=== PATIENT | female | born 1985 | race Caucasian/White ===

== ENCOUNTER 2021-07-28 12:12 | Inpatient (IN) | payer MEDICAID, SELFPAY ==
[2021-07-28] VITALS (46 sets, daily range): BP systolic 105–174; BP diastolic 55–102; PULSE 76–163; RESP 14–18; TEMP 37.1–37.6; O2SAT 83–99; BMI 33.5
[2021-07-28] MEDS: Lactated Ringers 1,000 ML 50 ML IV (12:45)
[2021-07-28] MEDS: Labetalol (Prefilled) 20 MG/4 ML IV (12:47)
[2021-07-28] MEDS: Oxytocin 30 units/NS 500 ml 30 UNITS/500 ML IV.SOLN 334 UNITS IV (13:09)
[2021-07-28] MEDS: Labetalol (Prefilled) 20 MG/4 ML 40 MG IV (13:10)
[2021-07-28 13:15] LABS: Absolute Lymphocyte Count 0.93 X10^3/uL (0.83-4.51); Absolute Neutrophil Count 24.9 X10^3/uL (2.0-7.7); Basophil# 0.05 X10^3/uL; Basophil% 0.2 % (0-1); Eosinophil# 0.01 X10^3/uL; Hematocrit 36.2 % (37-47); Hemoglobin 12.6 g/dL (12.0-15.0); Lymphocyte # 0.93 X10^3/ul (0.83-4.51); Lymphocyte % 3.5 % (19-41); Mean Corp Hgb Conc 34.8 g/dL (32-36); Mean Corpuscular Hgb 33.1 pg (27.0-32.0); Mean Platelet Vol. 11.1 fl (6.2-12.0); Monocyte# 0.57 X10^3/uL; Monocyte% 2.1 % (0-10); NRBC Flagged by Analyzer 0 % (0-5); Neutrophil # 24.94 X10^3/uL (2.7-7.7); Neutrophil % 93.4 % (47-70); POSITIVE DIFFERENTIAL YES; Platelet Count 337 K/mm3 (150-450); RBC Distribution Width CV 12.6 % (11.6-14.6); RBC Distribution Width SD 43.8 fl (35.1-43.9); Red Blood Count 3.81 M/mm3 (4.2-5.4); White Blood Count 26.7 K/mm3 (4.4-11.0)
--- NOTE | 2021-07-28 13:30 | HP.PCM.OB_ITS ---
HPI - General General Date of Admission: 07/28/21 HPI Narrative MICHAEL OTT, is a 36-year-old 1 para 0 with unknown gestational age who presents status post vaginal delivery at her brother's house. She arrived by squad. The was doing well. She had not delivered the placenta. She did not know she was . She states she had unprotected sex with her partner who is now incarcerated. However she not think she was because she continued to spot. She states she did not feel very much movement. She does not know when her last period was. She denies headache, visual changes or epigastric pain. Patient notes she has never been in the past, denies history sexually- transmitted diseases. Has smoked marijuana, tobacco and drink alcohol lightly during the . She states she had maybe 4 shots of alcohol in the last several months. PFSH PFSH Home Medications NK 07/28/21 [History Last Taken Unknown] Allergy/AdvReac Type Severity Reaction Status Date / Time Penicillins [PCN] Allergy Other Verified 07/28/21 12:21 ROS Constitutional Constitutional: Denies fatigue, fever(s) or malaise Eyes Eyes: Denies change in vision ENT HEENT: Denies dizziness or headache(s) Cardiovascular Cardiovascular: Denies chest pain, dyspnea or lightheadedness Respiratory/Chest Respiratory/Chest: Denies cough or dyspnea Gastrointestinal Gastrointestinal: Denies change in bowel habits Genitourinary Genitourinary: Denies burning urination or genital lesions Integumentary Integumentary: Denies rash Neurologic Neurologic: Denies confusion, dizziness, headache(s), numbness or weakness Vital Signs Vital Signs Vital Signs: 07/28/21 12:47 07/28/21 12:49 07/28/21 12:53 Pulse Rate 85 84 81 Blood Pressure 137/102 H 150/87 H 166/95 H BP Systolic 137 150 166 BP Diastolic 102 87 95 07/28/21 12:58 07/28/21 13:01 07/28/21 13:03 Pulse Rate 88 80 92 Blood Pressure 167/93 H 168/94 H 173/101 H BP Systolic 167 168 173 BP Diastolic 93 94 101 07/28/21 13:09 07/28/21 13:29 Pulse Rate 81 83 Blood Pressure 174/84 H 171/88 H BP Systolic 174 171 BP Diastolic 84 88 Weight Weight: 88.451 kg Body Mass Index (BMI) 33.5 Physical Exam Const alert and no apparent distress General Appearance: cooperative HEENT normocephalic Resp normal respiratory effort Cardio regular rate GI soft to palpation GI Narrative: gravid, nontender, appropriate for gestational age Extremity no calf tenderness General Extremity: edema Skin no wounds Rashes: No rashes noted Psych activity/motor behavior normal Labs Labs Labs: Blood Type Pending Antibody Screen Pending Hct 36.2 % (37-47) L Hgb 12.6 g/dL (12.0-15.0) Syphilis Total Ab Pending Rubella IgG Antibody Pending Hep Bs Antigen Pending HIV 1&2 Antibody Pending C.trachomatis DNA (PCR) Pending Group B Strep DNA Pending Assessment & Plan (1) No care in current in third trimester: PLAN: Patient with unknown gestational age. Unknown scores of the . She arrived by squad after delivery at home. On exam she has a small second-degree midline laceration that is hemostatic. So does not repaired. Vagina is intact. Remainder the perineum is intact. Of panel was drawn. I obtained verbal consent for a urine tox screen. environmental services project manager consult will be ordered because patient had no care. States her partner is currently incarcerated. (2) Delivery outcome of liveborn infant: PLAN: 3 and being observed and doing well. Unknown gestational age. 5 pounds 3 ounces. Male fetus. (3) Pre-eclampsia, severe, delivered: PLAN: Initiate hypertensive protocol. Preeclampsia labs were sent. Will initiate magnesium prophylaxis. Will monitor patient.
[2021-07-28] MEDS: Labetalol (Prefilled) 20 MG/4 ML 80 MG IV (13:39)
[2021-07-28 13:41] LABS: AST(SGOT) 17 U/L (15-37); Alanine Aminotransfer ALT/SGPT 17 U/L (13-56); Creatinine, Serum 0.81 mg/dL (0.55-1.02); EST Glomerular Filtration Rate 84 mL/min (>60); Est Glom Filt Rate - Afr Amer 102 mL/min (>60); Estimated Creatinine Clearance 81.32 ml/min
[2021-07-28] MEDS: Magnesium Sulfate 4gm/100mL 4 GM/100 ML IV.SOLN. IV (13:47)
[2021-07-28] MEDS: 0.9% Saline Lock 10 ML Syringe IV (13:53)
[2021-07-28] MEDS: Ketorolac 30 MG/ML Syringe IV (13:53)
[2021-07-28 14:03] LABS: Rubella IgG Non-Reactive (Nonreactive); Syphilis Antibodies Non-reactive
[2021-07-28] MEDS: Magnesium Sulfate 4gm/100mL 2 GM/50 ML IV.SOLN. IV (14:08)
[2021-07-28 14:19] LABS: HIV - WCH Non-Reactive (Nonreactive); Hepatitis B Surface Antigen Non-Reactive (Nonreactive); Hepatitis C Antibody Non-Reactive (Nonreactive)
[2021-07-28] MEDS: Magnesium Sulfate 20 GM/500 ML BAG IV (14:25)
[2021-07-28 14:26] LABS: Differential Indicated SCAN CRITERIA MET
[2021-07-28 14:39] LABS: Group B Strep DNA By PCR Negative (Negative); Internal Control PASS; Probe Check PASS; Specimen Processing Control PASS
[2021-07-28 16:02] LABS: Differential Comment SCANNED
[2021-07-28] MEDS: Labetalol 200 MG Tablet PO (16:25)
[2021-07-28 17:06] LABS: Mucous, Urine 0 SEEN /hpf (<or=2+)
[2021-07-28 17:13] LABS: Color, Urine Red (Yellow); Glucose, Dipstick Normal (Normal); Ketone-Dipstick 15 mg/dl (Negative); Leukocyte Esterase-Dipstick 100 /ul (Negative); Nitrite-Dipstick Negative (Negative); Occult Blood-Urine 250 /ul (Negative); Protein-Dipstick 100 mg/dl (Negative); Urine Bilirubin Dipstick Negative (Negative); Urine Clarity Cloudy (Clear); Urine Urobilinogen Normal (Normal)
[2021-07-28 17:36] LABS: Amphetamine Urine VISTA NEGATIVE (<1000 ng/mL); Barbiturate Urine VISTA NEGATIVE (< 200 ng/mL); Benzodiazepine Urine VISTA NEGATIVE (< 200 ng/mL); Cocaine Urine VISTA POSITIVE (< 300 ng/mL); Ecstacy Urine VISTA POSITIVE (< 500 ng/mL); Methadone Urine VISTA NEGATIVE (< 300 ng/mL); PCP Urine VISTA NEGATIVE (< 25 ng/mL); Protein, Urine (Random) 262.7 mg/dL (<11.9); Protein:Creat Ratio 1086 mg/g CRE (0-200); THC Urine VISTA NEGATIVE (< 50 ng/mL); Vista UDS pH Range 6
[2021-07-28 17:43] LABS: Amorphous Sediment 1+ URATE; Bacteria RARE /hpf (None Seen); Red Blood Cells-Urine > 100 SEEN /hpf (0-5); Squamous Epithelial Cells - UA 0-5 SEEN /hpf (5-10); White Blood Cells 10-25 SEEN /hpf (0-5)
[2021-07-28 20:36] LABS: Chlamydia Trachomatis by PCR Negative (Negative); Neisserai gonorrhoeae by PCR Negative (Negative); Probe Check PASS; Sample Adequacy Control PASS; Specimen Processing Control PASS
[2021-07-29] VITALS (32 sets, daily range): BP systolic 96–122; BP diastolic 49–83; PULSE 75–163; RESP 16–18; TEMP 36.6–37.6; O2SAT 84–99
[2021-07-29] MEDS: Magnesium Sulfate 20 GM/500 ML BAG IV ×2 (00:10→10:06)
[2021-07-29] MEDS: Labetalol 200 MG Tablet PO ×3 (04:04→22:28)
[2021-07-29] MEDS: Lactated Ringers 1,000 ML 50 ML IV (09:09)
--- NOTE | 2021-07-29 10:22 | PN.OBGYN_ITS ---
Subjective Subjective Denies complaints Objective Data Objective Data Vital Signs: Vital Signs Temp Pulse Resp BP Pulse Ox 98 F 77 18 103/50 L 99 07/29/21 07:57 07/29/21 10:07 07/29/21 10:07 07/29/21 10:07 07/29/21 06:54 Oxygen Delivery Method Room Air Weight: 195 lb Body Mass Index (BMI) 33.5 Intake & Output: Intake and Output for Last 24 Hours 07/27/21 07/28/21 07/29/21 23:59 23:59 23:59 Intake Total 1250.00 / 1250.00 2384.17 / 2384.17 Output Total 550 / 550 700 / 700 Balance 700.00 / 700.00 1684.17 / 1684.17 Lab / Micro Data Result Diagrams: 07/28/21 12:45 07/28/21 12:45 Labs: Laboratory Results - last 24 hr 07/28/21 12:45: WBC 26.7 H, RBC 3.81 L, Hgb 12.6, Hct 36.2 L, MCV 95.0, MCH 33.1 H, MCHC 34.8, RDW Std Deviation 43.8, RDW Coeff of Sarah 12.6, Plt Count 337, MPV 11.1, Immature Gran % (Auto) 0.800, Neut % (Auto) 93.4 H, Lymph % (Auto) 3.5 L, [place] % (Auto) 2.1, Eos % (Auto) 0.0, Baso % (Auto) 0.2, Absolute Neuts (auto) 24.9 H, Absolute Lymphs (auto) 0.93, Nucleated RBC % 0, Differential Comment SCANNED 07/28/21 12:45: Syphilis Total Ab Non-reactive, Rubella IgG Antibody Non- Reactive 07/28/21 12:45: Blood Type AB POSITIVE, Antibody Screen NEGATIVE 07/28/21 12:45: Hep Bs Antigen Non-Reactive, Hepatitis C Antibody Non-Reactive, HIV 1&2 Antibody Non-Reactive 07/28/21 12:45: Creatinine 0.81, Estim Creat Clear Calc 81.32, Est GFR (MDRD) Af Amer 102, Est GFR (MDRD) Non-Af 84, Uric Acid 4.0, AST 17, ALT 17 07/28/21 13:00: Chlam trachomat DNA PCR Negative, N.gonorrhoeae DNA (PCR) Negative, Group B Strep DNA Negative, Specimen Comment Not Reportable 07/28/21 16:45: Urine Color Red, Urine Clarity Cloudy, Urine pH 5.0, Ur Specific Pace 1.030, Urine Protein 100 H, Urine Glucose (UA) Normal, Urine Ketones 15 H, Urine Occult Blood 250 H, Urine Nitrite Negative, Urine Bilirubin Negative, Urine Urobilinogen Normal, Ur Leukocyte Esterase 100 H, Urine RBC > 100 SEEN, Urine WBC 10-25 SEEN, Ur Squamous Epith Cells 0-5 SEEN, Amorphous Sediment 1+ URATE, Urine Bacteria RARE, Urine Mucus 0 SEEN 07/28/21 16:45: Urine Opiates Screen NEGATIVE, Urine Methadone Screen NEGATIVE, Ur Barbiturates Screen NEGATIVE, Ur Phencyclidine Scrn NEGATIVE, Ur Amphetamines Screen NEGATIVE, U Methamphetamin-MDMA POSITIVE H, U Benzodiazepines Scrn NEGATIVE, Urine Cocaine Screen POSITIVE H, U Cannabinoids Screen NEGATIVE, Ur Drug Screen Comment 07/28/21 16:45: U Random Total Protein 262.7 H, Urine Creatinine 242.00, Protein/Creatinin Ratio 1086 H Micro: Microbiology 07/28/21 12:50 Nasal Secretion SARS-CoV-2 Antigen (Rapid) - Final Physical Exam Const alert, oriented x3 and no apparent distress HEENT normocephalic GI soft to palpation, non-tender and non-distended GI Narrative: fundus firm, mid & below umbilicus Extremity normal to inspection and no calf tenderness Assessment & Plan (1) No care in current in third trimester: COMMENT: PPD#1 PLAN: Drug screen positive for meth & cocaine Social work consult pending (2) Pre-eclampsia, severe, delivered: COMMENT: PPD#1 PLAN: On magnesium sulfate for 24 hours Labetalol 200mg bid BP's normal (3) care following vaginal delivery: COMMENT: PPD#1 PLAN: Repeat CBC tomorrow as WBC 26 on admission (after delivery) No signs infection
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
--- NOTE | 2021-07-29 17:20 | CASEMGMT ---
Social Work Labor and Delivery Unit This sba underwriter spoke with Maria Elena LOBO who shared that when in MOB's room this afternoon, the MOB wanted to go outside to smoke. RN reports educated MOB to policies on leaving unit, and that could offer a nicotine patch. MOB's brother then reportedly answered for MOB. RN reports that told MOB that needed to hear this from MOB directly. MOB reportedly put her head down, shook head yes and did not speak. This sba underwriter back to room to provide MOB with Medicaid application. MOB had previously told this sba underwriter willingness to work on this application. MOB sleeping as social science instructor entered and MOB's brother Misbah holding the baby. RN also entered to do vitals. MOB woke up. Misbah then started to ask this sba underwriter if his understanding about children service was accurate. Asked Misbah what Misbah was aware of and this sba underwriter asked MOB if okay to talk to answer Misbah's questions. MOB shook head yes. Confirmed that Misbah understands correctly that children services will likely be coming to talk to MOB about concerns and plans for baby. Misbah reported that MOB's mom will be home to help. Provided MOB with Medicaid application and asked MOB to work on this application tonight and social science instructor will be back tomorrow to gather up forms and send off to [facility]. MOB confirms that can complete forms. Misbah then reported that between himself and MOB's mom, family will help MOB if needed with forms. MOB quiet, head downcast, tired appearing as evidence by nodding off a couple of times. MOB's affect flat, mood sad. MOB acknowledge that feeling upset about things and about children services. Encouragement given to MOB that sometimes humans need to feel hard emotions to be motivated to change, and that it is in MOB's hands right now as to what MOB is going to do moving forward, that cannot change the past, just work on making positive changes for the future. Misbah stated several times that MOB did not know she was when using drugs. Educated MOB and Misbah that substance use is serious, and despite MOB reportedly not knowing about , this is still something that needs to be addressed for the termite exterminator health of MOB and safety of baby. MOB and Misbah accreted social work input without issue. Plan: Social work to follow. Baby to remain in hospital for a minimum of 5 days, bringing to Monday08.02.2021. Will be calling children services on 07.30.2021. Will follow up about Medicaid application. Will be making [facility] referral. Will provide community resource information for home going, including information on mood disorders. -STEFANIE Salinas, SPECIAL FORCES ENGINEER SERGEANT
[2021-07-29] MEDS: Acetaminophen 500 MG Tablet 1000 MG PO (17:48)
[2021-07-29] MEDS: Naproxen 375 MG Tablet PO (20:09)
[2021-07-30] VITALS (8 sets, daily range): BP systolic 114–145; BP diastolic 66–77; PULSE 77–85; RESP 16–18; TEMP 36.2–37.3; O2SAT 86–100
--- NOTE | 2021-07-30 04:34 | NURSING ---
In room for assessment, MOB changing baby's diaper, appropriate with baby. Onsie noted to be wet with formula, MOB began to wrap baby up after changing diaper. This RN stated that onsie needed to be changed due to being cold and wet. MOB states she didn't know or notice and then preceded to change onsie with RN's help.
[2021-07-30 05:57] LABS: Absolute Lymphocyte Count 2.02 X10^3/uL (0.83-4.51); Basophil# 0.04 X10^3/uL; Basophil% 0.3 % (0-1); Eosinophil# 0.43 X10^3/uL; Eosinophils% 2.9 % (0-5); Hematocrit 25.1 % (37-47); Hemoglobin 8.7 g/dL (12.0-15.0); Lymphocyte # 2.02 X10^3/ul (0.83-4.51); Lymphocyte % 13.8 % (19-41); Mean Corp Hgb Conc 34.7 g/dL (32-36); Mean Corpuscular Hgb 34.3 pg (27.0-32.0); Mean Corpuscular Volume 98.8 fL (81-99); Mean Platelet Vol. 10.7 fl (6.2-12.0); Monocyte# 1.05 X10^3/uL; Monocyte% 7.2 % (0-10); NRBC Flagged by Analyzer 0 % (0-5); Neutrophil # 11.04 X10^3/uL (2.7-7.7); Neutrophil % 75.3 % (47-70); Platelet Count 262 K/mm3 (150-450); RBC Distribution Width CV 13.4 % (11.6-14.6); RBC Distribution Width SD 48.2 fl (35.1-43.9); Red Blood Count 2.54 M/mm3 (4.2-5.4); White Blood Count 14.7 K/mm3 (4.4-11.0)
--- NOTE | 2021-07-30 08:33 | PN_ITS ---
Subjective Subjective pt seen at bedside doing well. Patient denies any dizziness, chest pain, shortness of breath, headaches or visual changes. Patient reports is up ambulating without complication. Voiding without difficulty and had bowel movement. bottle feeding. Objective Data Objective Data Vital Signs: Vital Signs Temp Pulse Resp BP Pulse Ox 98.3 F 80 16 114/69 99 07/30/21 04:32 07/30/21 04:32 07/30/21 04:32 07/30/21 04:32 07/30/21 04:32 Oxygen Delivery Method Room Air Weight: 88.451 kg Body Mass Index (BMI) 33.5 Intake & Output: Intake and Output for Last 24 Hours 07/28/21 07/29/21 07/30/21 23:59 23:59 23:59 Intake Total 1250.00 / 1250.00 3285.00 / 3285.00 Output Total 550 / 550 900 / 900 Balance 700.00 / 700.00 2385.00 / 2385.00 Lab / Micro Data Result Diagrams: 07/30/21 05:48 07/28/21 12:45 Labs: Laboratory Results - last 24 hr 07/30/21 05:48: WBC 14.7 H, RBC 2.54 L, Hgb 8.7 L, Hct 25.1 L, MCV 98.8, MCH 34. 3 H, MCHC 34.7, RDW Std Deviation 48.2 H, RDW Coeff of Sarah 13.4, Plt Count 262, MPV 10.7, Immature Gran % (Auto) 0.500, Neut % (Auto) 75.3 H, Lymph % (Auto) 13.8 L, [place] % (Auto) 7.2, Eos % (Auto) 2.9, Baso % (Auto) 0.3, Absolute Neuts (auto) 11.0 H, Absolute Lymphs (auto) 2.02, Nucleated RBC % 0 Micro: Microbiology 07/28/21 Unknown Genital vaginal Group B Streptococcus Culture - Preliminary Group B Beta Streptococcus is not isolated. 07/28/21 12:50 Nasal Secretion SARS-CoV-2 Antigen (Rapid) - Final Physical Exam Const alert and oriented x3 Assessment & Plan Assessment/Plan (1) care following vaginal delivery: (2) No care in current in third trimester: (3) Delivery outcome of liveborn : (4) Pre-eclampsia, severe, delivered: PLAN: PPD#2 , Doing well Routine care pain mgmt ambulation continue labetalol BID repeat cbc 12pm today- anemia 7th grade social studies teacher- +UDS
[2021-07-30] MEDS: Naproxen 375 MG Tablet PO ×2 (08:54→22:43)
[2021-07-30] MEDS: 0.9% Saline Lock 10 ML Syringe IV (09:59)
[2021-07-30] MEDS: Labetalol 200 MG Tablet PO ×2 (09:59→22:43)
[2021-07-30 12:13] LABS: Hematocrit 27.3 % (37-47); Hemoglobin 8.9 g/dL (12.0-15.0); Mean Corp Hgb Conc 32.6 g/dL (32-36); Mean Corpuscular Hgb 32.5 pg (27.0-32.0); Mean Corpuscular Volume 99.6 fL (81-99); Mean Platelet Vol. 10.4 fl (6.2-12.0); Platelet Count 287 K/mm3 (150-450); RBC Distribution Width CV 13.4 % (11.6-14.6); RBC Distribution Width SD 49.1 fl (35.1-43.9); Red Blood Count 2.74 M/mm3 (4.2-5.4); White Blood Count 16.2 K/mm3 (4.4-11.0)
--- NOTE | 2021-07-30 13:31 | CASEMGMT ---
Addendum entered and electronically signed by Frances Raymond 08/02/21 09:58: Note Clarification - in Assessment section of this note, erroneously wrote FOB. The male present and being discussed in the Assessment Section is MOB's brother Misbah and the infant's maternal uncle. The FOB has not been involved or present during hospital stay and per prior conversation with MOB, the reported FOB is incarcerated. -Frances Raymond, HUGH, NEUROLOGICAL SURGEON Original Note: Social Work Labor and Delivery Unit Medical Records reviewed. Noted nursing documentation and appreciated. Summary: Met with the mother of baby (MOB) and MOB's brother Misbah Simpson in room. Misbah holding baby and MOB getting ready to eat breakfast. Checked in to see if the MOB had completed the Medicaid application and this has not yet been done. Per Misbah, the application has not been done yet but will help the MOB complete the form later today. Misbah reports the MOB was able to get some good sleep last night and is much more rested. This web content writer addressed with MOB and Misbah any legal status of Misbah. This web content writer has familiarity of local law enforcement registry sites and recalled Misbah as part of a public local registry. This web content writer inquired whether Misbah has any legal status or registry concerns for his part. Misbah confirmed that he does have to register as a tier II sex offender, but denies there being any type of restrictions in place. This web content writer discussed that for Misbah's own wellbeing, would not want Misbah being in a situation that could jeopardize his legal status (nor safety of others). Misbah maintain there are no restrictions and that able to be at hospital supporting the MOB. Discussed that should children services consider a safety plan this legal status could potentially impact. Misbah reports he has been thinking about his legal status as a possible concern, and would be willing to make other living arrangements if needed. MOB then reported to this web content writer that had MOB known of status would not have used drugs, pointing to the baby that is my drug. MOB reports has been taking care of the baby all day and he has been smiling up at me. MOB reports to feel happy about having a baby. MOB reported that her mother will be around sometimes to help. Educated MOB that if a safety plan is considered, that typically someone has to be with the parents (MOB in this case) all of the time and be a person who is approved by [employer]. Educated and reinforced that this web content writer is not children services, that children services will be looking at all options for this family and talk with MOB options, but that if a safety plan is considered MOB needs to be thinking about who can be present with MOB and baby. Misbah asked if it would be helpful for MOB to start making calls to get self into a drug/alcohol assessment. Educated MOB that if MOB wants to take this into her own hands that would likely be viewed in a positive light. Called [facility] and spoke with Lili in the intake department. 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 Additional concern, that while MOB is appropriate with baby there seems to be some lack of awareness with feeding (formula running down neck and keeping baby in wet onesie, needing prompting by staff to address). Case will be screened in for investigation. Lili updated to discharge timeframe for baby as Monday, so as long as baby continues to do well. Assessment: FOB holding baby, and held baby appropriately. FOB calm, good eye contact. FOB did tend to speak for the MOB, but when this web content writer would look only at MOB and not at the FOB, the FOB did remain quiet giving MOB opportunity to talk. MOB was sitting up in bed, alert, appearing more rested than 07.29.2021. MOB expressed feeling more rested. MOB with constricted affect, fair to avoidant eye contact, as evidenced by talking about baby without looking at baby or this web content writer, then ending thoughts by looking briefly at this web content writer or the baby. MOB did have one episode of crying, this was brief in duration, and arose when MOB stated that did not want to lose the baby. Emotional support offered. Plan: Social work will continue to follow and assist with plan to see MOB and baby again on Monday08.02.2021. MOB will be discharged to hotel status today, and baby to remain in hospital at this time. Collaborating with children services on plan for baby. Will follow up again about Medicaid application. Will be making [facility] referral. Will provide community resource information for home going, including information on mood disorders. -STEFANIE Salinas, NEUROLOGICAL SURGEON
[2021-07-30] MEDS: Acetaminophen 500 MG Tablet 1000 MG PO (15:18)
[2021-07-31 01:38] VITALS: BP 133/70; PULSE 83; RESP 16; TEMP 37
[2021-07-31 08:00] VITALS: BP 134/75; PULSE 75; RESP 16; TEMP 36.9
--- NOTE | 2021-07-31 09:51 | PCM.PN.OB ---
Subjective Subjective Pain well controlled, average lochia. No N/V. Denies VILLALPANDO or visual changes or epigastric pain. Objective Data Objective Data Vital Signs: Vital Signs Temp Pulse Resp BP Pulse Ox 98.4 F 75 16 134/75 H 86 07/31/21 08:00 07/31/21 08:00 07/31/21 08:00 07/31/21 08:00 07/30/21 08:35 Oxygen Delivery Method Room Air Weight: 88.451 kg Body Mass Index (BMI) 33.5 Intake & Output: Intake and Output for Last 24 Hours 07/29/21 07/30/21 07/31/21 23:59 23:59 23:59 Intake Total 3285.00 / 3285.00 Output Total 900 / 900 Balance 2385.00 / 2385.00 Lab / Micro Data Result Diagrams: 07/30/21 12:00 07/28/21 12:45 Labs: Laboratory Results - last 24 hr 07/30/21 12:00: WBC 16.2 H, RBC 2.74 L, Hgb 8.9 L, Hct 27.3 L, MCV 99.6 H, MCH 32.5 H, MCHC 32.6 D, RDW Std Deviation 49.1 H, RDW Coeff of Sarah 13.4, Plt Count 287, MPV 10.4 Micro: Microbiology 07/28/21 Unknown Genital vaginal Group B Streptococcus Culture - Final Group B Beta Streptococcus is not isolated. 07/28/21 12:50 Nasal Secretion SARS-CoV-2 Antigen (Rapid) - Final Physical Exam Const alert General Appearance: cooperative GI GI Narrative: soft, moderate distention, fundus firm, appropriately tender. Abdominal bandage clean dry and intact Assessment & Plan (1) Pre-eclampsia, severe, delivered: COMMENT: PPD#3 doing well. BP stable. D/c home on labetalol. F/y next week. STaying as hotel as not d/geraldo yet. (2) care following vaginal delivery: (3) Delivery outcome of liveborn infant:
--- NOTE | 2021-07-31 09:57 | DS.PCM_ITS ---
Providers Date of Admission: 07/28/21 Date of Discharge: 07/31/21 Reason For Visit: VAG DELIVERY Diagnosis Discharge Diagnosis (1) Pre-eclampsia, severe, delivered: Status: Acute Code(s): O14.14 - Severe pre-eclampsia complicating childbirth (2) care following vaginal delivery: Status: Acute Code(s): Z39.2 - Encounter for routine follow-up (3) Delivery outcome of liveborn : Status: Acute Code(s): Z37.9 - Outcome of delivery, unspecified Medications at Discharge Home Medications labetalol 200 mg PO BID #14 tab 07/31/21 Hospital Course Operations None Summary of Care Provided Hospital Course: Patient was admitted after delivering at home. She deliver the placenta in the hospital. She has small second-degree laceration that is hemostatic and not repaired. She was diagnosed with severe preeclampsia and placed on magnesium. She also required IV medications to control her blood pressure. By postoperative day #3 her blood pressures were stable. She was bottlefeeding the . The was to remain here for couple more days for observation due to drug use during the . Patient was discharged ho tn on labetalol and to follow-up in our office next week or as needed. Weight / BMI Weight Weight: 88.451 kg Body Mass Index (BMI) 33.5 ABG / Lab / Microbiology Data Result Diagrams: 07/30/21 12:00 07/28/21 12:45 Laboratory: Laboratory Results - last 24 hr 07/30/21 12:00: WBC 16.2 H, RBC 2.74 L, Hgb 8.9 L, Hct 27.3 L, MCV 99.6 H, MCH 32.5 H, MCHC 32.6 D, RDW Std Deviation 49.1 H, RDW Coeff of Sarah 13.4, Plt Count 287, MPV 10.4 Microbiology: Microbiology 07/28/21 Unknown Genital vaginal Group B Streptococcus Culture - Final Group B Beta Streptococcus is not isolated. 07/28/21 12:50 Nasal Secretion SARS-CoV-2 Antigen (Rapid) - Final Meaningful Use Info Meaningful Use Diagnoses (Choose all that apply): None applicable Discharge Plan Admission Admit Date/Time: 07/28/21 12:12 Primary Reason for Your Visit: Delivery and preeclampsia Attending Provider: Di Barone Discharge Orders/Prescriptions Prescriptions: New labetalol 200 mg tablet 200 mg PO BID Qty: 14 RF: 0 Disposition Disposition (needs filled in before D/C Order can be placed): Home, Self Care
[2021-07-31] MEDS: Labetalol 200 MG Tablet PO (10:09)
[2021-07-31 13:00] VITALS: BP 141/82; PULSE 85; RESP 14; TEMP 37.2
[2021-07-31 20:00] VITALS: BP 138/77; PULSE 81; RESP 18; TEMP 37.5
--- NOTE | 2021-08-02 15:14 | CASEMGMT ---
Social Work Labor and Delivery Refer to baby's chart, [id number], for details of social work interaction since patient/MOB discharge as a patient. Children services is involved. Michelle Ge is the assigned worker. There is a safety plan being set. [facility] referral was made by this ad writer. -STEFANIE Salinas, HEALTH PROMOTION SPECIALIST
== END 2021-07-31 20:00 | disposition home or self-care (01) | DRG 776 ==
PROVIDERS: Obstetrics & Gynecology; Admitting Provider Obstetrics & Gynecology; Visit Provider Obstetrics & Gynecology
DX: Z39.0 Encounter for care and examination of mother immediately after delivery (principal); O14.15 Severe pre-eclampsia, complicating the puerperium; Z20.822 Contact with and (suspected) exposure to COVID-19; Z3A.00 Weeks of gestation of pregnancy not specified
CPT/HCPCS: 80307; 81001; 82565; 82570; 84156; 84450; 84460; 84550; 85025; 85027; 86703; 86762; 86780; 86803; 86850; 86900; 86901; 87081; 87340; 87426; 87491; 87591; 87653; 99406; J7120; 90686; A4216